=== PATIENT | female | born 1985 | race Caucasian/White ===

== ENCOUNTER → 2017-11-15 16:25 | Outpatient (CLI) | payer MEDICAID, SELFPAY ==
[2017-11-15 17:16] LABS: Absolute Lymphocyte Count 2.68 X10^3/ul (0.83-4.51); Absolute Neutrophil Count 2.9 X10^3/uL (2.0-7.7); Basophil# 0.02 X10^3/uL; Basophil% 0.3 % (0-1); Eosinophil# 0.18 X10^3/uL; Eosinophils% 2.9 % (0-5); Hematocrit 41.2 % (37-47); Hemoglobin 14.2 g/dl (12.0-15.0); Lymphocyte # 2.68 X10^3/ul (4.0); Lymphocyte % 42.6 % (19-41); Mean Corp Hgb Conc 34.5 g/gl (32-36); Mean Corpuscular Hgb 31.8 pg (27.0-32.0); Mean Corpuscular Volume 92.4 fL (81-99); Mean Platelet Vol. 10.6 fl (6.2-12.0); Monocyte# 0.46 X10^3/uL; Monocyte% 7.3 % (0-10); Neutrophil # 2.94 X10^3/uL (2.7-7.7); Neutrophil % 46.7 % (47-70); Platelet Count 282 K/mm3 (150-450); RBC Distribution Width CV 12.1 % (11.6-14.6); Red Blood Count 4.46 M/mm3 (4.2-5.4); White Blood Count 6.3 K/mm3 (4.4-11.0)
[2017-11-15 17:22] LABS: POSITIVE COUNT NO; POSITIVE DIFFERENTIAL NO; POSITIVE MORPHOLOGY NO
[2017-11-15 18:26] LABS: Ferritin 64 ng/mL (8-252); Free T3 2.4 pg/mL (2.18-3.98); Iron 55 ug/dL (50-170); Iron Binding Capacity,Total 277 ug/dL (250-450); PERCENT IRON SATURATION 19.9 % (15.0-55.0); T4 Free Direct 1.17 ng/dL (0.76-1.46); Thyroid Stim Hormone (TSH) 2.74 uIU/mL (0.358-3.74); Vitamin B12 1268 pg/mL (211-911)
[2017-11-17 20:07] LABS: Endomysial Antibody IgA Negative (Negative)
[2017-11-18 14:05] LABS: Immunoglobulin A 223 mg/dL (87-352); t-Transglutaminase IgA <2 U/mL (0-3)
[2017-11-21 15:23] LABS: Vitamin D 1,25-Dihydroxy 50.7 pg/mL (19.9-79.3)
== END ==
PROVIDERS: Visit Provider Nurse Practitioner
DX: E03.9 Hypothyroidism, unspecified (principal); R53.82 Chronic fatigue, unspecified; R53.81 Other malaise
CPT/HCPCS: 36415; 82607; 82652; 82728; 82784; 83516; 83540; 83550; 84439; 84443; 84481; 85025; 86255